=== PATIENT | male | born 1975 | race Caucasian/White ===

== ENCOUNTER → 2020-05-19 11:19 | Outpatient (BNVA) | payer OTHER, SELFPAY | PROVIDERS: Referring Provider Nurse Practitioner Family; Visit Provider Nurse Practitioner Family | DX: Z20.828 Contact with and (suspected) exposure to other viral communicable diseases (principal); R68.89 Other general symptoms and signs | CPT/HCPCS: 87400; 87635 ==

== ENCOUNTER 2021-03-16 12:07 | Emergency (ER) | payer SELFPAY ==
[2021-03-16 12:13] VITALS: BP 120/78; PULSE 87; RESP 22; TEMP 36.4; O2SAT 95; BMI 23.0
--- NOTE | 2021-03-16 12:36 | XRR_ITS ---
PROCEDURE INFORMATION: Exam: XR Chest Exam date and time: 03/16/2021 12:36 PM Age: 45 years old Clinical indication: Cough and wheezing; Additional info: Cough, wheeze TECHNIQUE: Imaging protocol: XR of the chest. Views: 1 view. COMPARISON: No relevant prior studies available. FINDINGS: Lungs: Unremarkable. No consolidation. Pleural spaces: Unremarkable. No pleural effusion. No pneumothorax. Heart/Mediastinum: Unremarkable. No cardiomegaly. Bones/joints: Unremarkable. XR/XR chest 1V portable [id number] IMPRESSION: No acute findings.
--- NOTE | 2021-03-16 12:38 | W.ED.ASTHMA ---
HPI - Asthma General: Chief Complaint: Asthma Stated Complaint: SOB WHEEZING CONGESTION DIZZY Time Seen by Provider: 03/16/21 12:28 Source: patient and family (spouse) Mode of arrival: ambulatory Limitations: no limitations History of Present Illness: HPI Narrative: Pt with long standing history of asthma. Patient is accompanied by his spouse who convinced him to come to the emergency department. He is an over the road truck mechanic and has had increasing shortness of breath with activity without any chest pain or fevers over the past week or so. He is a smoker. Is not been exposed to infectious disease and has had no Covid vaccinations. No one else is ill at home. States he has been feeling short of air with activity which he can usually tolerate but again has been out of his inhaler. States he had a occasionally productive cough. Been eating and drinking normally, no loss of taste or smell, no vomiting or diarrhea. No history of cardiovascular disease. MD complaint: shortness of breath and wheezing Severity: moderate Context: ran out of meds Associated symptoms: Reports productive cough; Deny chest pain, fever(s) or hemoptysis Asthma History: childhood onset Related Data: Current Asthma Therapy: inhaled bronchodilator Review of Systems Const: Denies: fever(s), body aches, change in appetite, fatigue or night sweats Eyes: Denies: change in vision ENMT: Denies: throat pain, hoarseness, mouth pain, nasal congestion or sinus pain Card: Denies: chest pain, palpitations, irregular heart rhythm or swelling of feet/ankles Resp: Reports: productive cough and wheezing; Denies: hemoptysis GI: Denies: abdominal pain, nausea or vomiting : Denies: flank pain, dysuria or urinary frequency Musc: Denies: neck pain, back pain, extremity pain or extremity swelling Skin/Breast: Denies: rash or pruritus Neuro: Denies: headache(s), weakness in extremities or sensory changes Psych: Denies: anxiety, depression or mood swings Endo: Denies: polyuria or polydipsia Hima/Lymph: Denies: easy bruising or easy bleeding PFSH ED PFSH: Family History (Updated 05/19/20 @ 09:45 by Zoe Alston LPN) Denies family history of Diabetes Clotting disorder Hypertension Social History Smoking and tobacco status: current every day smoker Alcohol intake: former Year of sobriety/quit date alcohol: 2019 Former alcohol use details: occasional Desire information about alcohol rehabilitation?: No Physical Exam Narrative: EXAM NARRATIVE: Makes good eye contact. Speech is goal-directed. He is able to converse in complete sentences without dyspnea. Const: COMMON NORMALS: no acute distress, average body habitus, patient oriented x3 and alert GENERAL APPEARANCE: cooperative ORIENTATION/CONSCIOUSNESS: Yes awake HENMT: COMMON NORMALS: normocephalic and Normal external nose present HEAD & SCALP: normocephalic FACE & SINUS: normal facial exam NOSE: Normal external nose present MOUTH: Normal oral and palatal mucosa present (Mask per protocol) Eye: COMMON NORMALS: Equal, round and reactive pupils present, EOMs intact bilaterally and conjunctivae normal CONJUNCTIVA: Yes conjunctivae normal PUPIL: Yes Equal, round and reactive pupils present Neck/C-Spine: COMMON NORMALS: full ROM, no lymphadenopathy, supple and no JVD Lymph: LYMPHATIC: no lymphadenopathy noted Chest: COMMONS NORMALS: normal inspection of the chest and normal palpation of entire chest wall Resp: COMMON NORMALS: No retractions and percussion normal EFFORT & INSPECTION: Yes able to speak in complete sentences AUSCULTATION: rhonchi throughout and wheezes scattered wheezes PERCUSSION: percussion normal Cardio: COMMON NORMALS: no JVD, regular rate, regular rhythm and No murmurs present (Cardio) RATE: regular rate RHYTHM: regular rhythm : COMMON NORMALS: Yes no CVA tenderness BLADDER/KIDNEY EXAM: Yes no CVA tenderness Back/Pelvis: COMMON NORMALS: no CVA tenderness, thoracic and lumbar spine normal to inspection, no thoracic nor lumbar tenderness and thoraco-lumbar ROM normal Extremity: COMMON NORMALS: normal to inspection, no joint enlargement, no calf tenderness and no pedal edema Neuro: COMMON NORMALS: patient oriented x3, moves all extremities, no focal motor deficits and no sensory deficits noted SENSORIUM/ORIENTATION: Yes alert Course Reevaluation(s): Reevaluation #1: Patient subjectively states he feels some better but still pretty wheezy. Repeat examination reveals him to be talking complete sentences. He still has bilateral rhonchi and wheezes with some improved air movement. His chest x-ray is reassuring. We will going give him a day worth of oral steroids and a repeat DuoNeb. I discussed the anticipated plan and expected course with both patient and spouse. We also discussed smoking cessation and if symptoms do not continue to improve returning for reevaluation and additional testing. He acknowledged our discussion. Time: 14:06 Reevaluation #2: I came back to the patient's room to check on him to plan for discharge and apparently he had left. I asked the RN and she stated he did not want to wait anymore for respiratory therapy to give him a second treatment and stated he would see his doctor in the morning. I was not aware of the respiratory therapy had not been to this patient's room for second treatment nor was I aware of his desire to leave prior to his leaving her letter provided him prescriptions. Cording to the RN the patient did sign a AGAINST MEDICAL ADVICE form. Throughout my interaction with the patient and his spouse he was very cooperative communicative and appeared to have intact decision-making capacity. Time: 15:39 Vital Signs: Vital signs: Vital Signs Temperature 97.5 F L 03/16/21 12:13 Pulse Rate 86 03/16/21 14:16 Respiratory Rate 16 03/16/21 14:16 Blood Pressure 120/78 03/16/21 12:13 Pulse Oximetry 95 03/16/21 14:16 MDM - Asthma EKG Data^: EKG 1: Attestation: I personally reviewed and interpreted this EKG as follows: (Patient's resting EKG shows a ventricular rate of 87 bpm. Normal intervals normal axis. No acute ST-T wave changes noted.) Discharge Plan Discharge Patient Disposition: Left Against Medical Advice Clinical Impression: Asthma Condition: Stable Prescriptions: No Action pantoprazole [Protonix] 20 mg tablet,delayed release (DR/EC) ? mg PO DAILY RF: 0 azithromycin 250 mg tablet See Rx Instructions PO .COMPLEX Qty: 6 RF: 0 fexofenadine-pseudoephedrine [Soco-D 12 Hour] 60-120 mg tablet extended release 12 hr 1 tab PO Q12H PRN (Reason: sinus symptoms) 15 Days Qty: 30 RF: 0 guaifenesin 600 mg tablet extended release 12hr 600 mg PO Q12H Qty: 20 RF: 0 Coding Level of Care Code ED Radio Interference Investigator for Chg Fwd Exam Comprehensive
[2021-03-16 13:09] VITALS: PULSE 91; RESP 17; O2SAT 95
[2021-03-16] MEDS: ipratropium-albuterol 3 mL Neb INHALATION (13:09)
[2021-03-16 13:16] VITALS: PULSE 92
[2021-03-16] MEDS: predniSONE 20 mg Tablet 60 MG PO (14:13)
[2021-03-16 14:16] VITALS: PULSE 86; RESP 16; O2SAT 95
--- NOTE | 2021-03-16 15:39 | PC.NURSE ---
patient came to station to say they are leaving because they have children at home and can't wait anymore. he says they just moved here and haven't found a primary care but intend to do so Wednesday. AMA form signed
== END 2021-03-16 15:42 | disposition left against medical advice (07) ==
PROVIDERS: Emergency Provider Emergency Medicine
DX: J45.909 Unspecified asthma, uncomplicated (principal); Z53.21 Procedure and treatment not carried out due to patient leaving prior to being seen by health care provider; F17.210 Nicotine dependence, cigarettes, uncomplicated
CPT/HCPCS: 71045; 94640; 99283; J7512